=== PATIENT | female | born 1995 | race Caucasian/White ===

== ENCOUNTER 2018-01-16 14:20 | Outpatient (CLI) | END 2018-01-16 14:21 | disposition home or self-care (01) | LOC: LAB 14:20 | PROVIDERS: ATTEND Emergency Medicine | DX: J06.9 Acute upper respiratory infection, unspecified (principal) | CPT/HCPCS: 87651; 87804 ==

== ENCOUNTER 2018-03-03 19:05 | Emergency (ER) ==
[2018-03-03 19:12] VITALS: BP 113/78; TEMP 99.8; BMI 28.3
[2018-03-03] MEDS ORDERED: GI COCKTAIL PO STA (19:33)
[2018-03-03] MEDS ORDERED: ZOFRAN 4 MG/2 ML IM STA (19:33)
[2018-03-03] MEDS ORDERED: DEMEROL 25 MG/ML VIAL IM STA ×2 (19:33→22:22)
--- NOTE | 2018-03-03 20:13 | ED.PDOC ---
General ED Provider: Dr. NOHEMI JOHNSON Chief Complaint: Abdominal Pain Stated Complaint: Hurting in upper belly, dull type, no nausea or vomiting Time Seen by Physician: 19:05 Mode of Arrival: Walk-In Information Source: Patient, Family Primary Care Provider: NOHEMI JOHNSON[facility] Nursing and Triage Documentation Reviewed and Agree: Yes Reviewed sepsis parameters & appropriate labs ordered?: No System Inflammatory Response Syndrome: Not Applicable Sepsis Protocol: For patient's 13 years and over: Temp is 96.8 and below OR 101 and greater Pulse >90 BPM Resp >20/minute Acutely Altered Mental Status Are patient's symptoms suggestive of a new infection, such as: -Pneumonia -Skin, Soft Tissue -Endocarditis -UTI -Bone, Joint Infection -Implantable Device -Acute Abdominal Infection -Wound Infection -Meningitis -Blood Stream Catheter Infection -Unknown GI Complaint Exam - Abdominal Pain Complaint/Exam Onset: Gradual Symptoms Are: Still present Timing: Constant Initial Severity: Moderate Current Severity: Moderate Location of Pain: Epigastric Radiates To: Reports: Back Character: Reports: Aching, Throbbing Aggravating: Reports: Movement Alleviating: Reports: None Associated Signs and Symptoms: Denies: Diaphoresis, Fever, Cough, Chest pain, Dizziness, Back pain, Constipation, Blood in stool, Dysuria, Urinary frequency, Decreased urine output, Decreased appetite, Vaginal bleeding, Vaginal discharge , Nausea, Vomiting, Diarrhea, Sore throat, Decreased activity AAA Risk Factors: Reports: None Cardiac Risk Factors: Reports: None Ectopic Risk Factors: Reports: None Ovarian Torsion Risk Factors: Reports: None Surgical Obstruction Risk Factors: Reports: None Related Surgical History: Reports: None Patient Rh Status: Unknown Abdominal Findings: Absent: Pulsatile mass, Abdominal distention, Unequal femoral pulses Differential Diagnoses: GB, PUD Review of Systems - Review Of Systems Constitutional: Reports: No symptoms Eyes: Reports: No symptoms Ears, Nose, Mouth, Throat: Reports: No symptoms Respiratory: Reports: No symptoms Cardiac: Reports: No symptoms, Chest pain GI: Reports: Abdominal pain : Reports: No symptoms Musculoskeletal: Reports: No symptoms Skin: Reports: No symptoms Neurological: Reports: No symptoms Endocrine: Reports: No symptoms Hematologic/Lymphatic: Reports: No symptoms All Other Systems: Reviewed and Negative Past Medical History - Past Medical History Previously Healthy: Yes Endocrine: Reports: None Cardiovascular: Reports: None Respiratory: Reports: None Hematological: Reports: None Gastrointestinal: Reports: None Genitourinary: Reports: None Neuro/Psych: Reports: None Musculoskeletal: Reports: None Cancer: Reports: None Last Menstrual Period: 1 MONTH - Surgical History General Surgical History: Reports: None - Family History Family History: Reports: None - Social History Smoking Status: Never smoker Hx Substance Use: No Alcohol Screening: None - Immunizations Tetanus Shot up to Date: Yes Physical Exam - Physical Exam Appearance: Ill-appearing, Obese Eyes: TAZ, EOMI, Conjunctiva clear ENT: Ears normal, Nose normal, Oropharynx normal Respiratory: Airway patent, Breath sounds clear, Breath sounds equal, Respirations nonlabored Cardiovascular: RRR, Pulses normal, No rub, No murmur GI/: Soft, Tender (rt uq) Musculoskeletal: Normal strength, ROM intact, No edema, No calf tenderness Skin: Warm, Dry, Normal color Neurological: Sensation intact, Motor intact, Reflexes intact, Cranial nerves intact, Alert, Oriented Psychiatric: Affect appropriate, Mood appropriate Physician Notification - Case Discussed Time of Notification: 22:23 (Dr Hathaway) Critical Care Note - Critical Care Note Total Time (mins): 30 Course - Course Hematology/Chemistry: 03/03/18 19:43 03/03/18 19:43 Orders, Labs, Meds: Lab Review 03/03/18 03/03/18 03/03/18 19:43 19:43 19:43 WBC 16.94 H RBC 5.08 Hgb 14.9 Hct 44.0 MCV 86.6 MCH 29.3 MCHC 33.9 RDW Coeff of Jennifer 12.6 Plt Count 318 Immature Gran % (Auto) 0.4 Neut % (Auto) 85.4 Lymph % (Auto) 9.2 L Kings[place] % (Auto) 4.4 Eos % (Auto) 0.2 Baso % (Auto) 0.4 Immature Gran # (Auto) 0.1 Neut # (Auto) 14.5 H Lymph # (Auto) 1.6 [place] # (Auto) 0.8 Eos # (Auto) 0.0 Baso # (Auto) 0.1 Sodium 140 Potassium 4.1 Chloride 101 Carbon Dioxide 26 Anion Gap 17.1 BUN 12 Creatinine 0.79 Estimated GFR (MDRD) 91.00 BUN/Creatinine Ratio 15.18 Glucose 92 Calcium 10.2 Total Bilirubin 0.6 AST 34 ALT 55 Alkaline Phosphatase 84 Total Protein 8.2 Albumin 4.3 Globulin 3.9 Albumin/Globulin Ratio 1.10 Amylase 50 Lipase 18 Serum , Qual Negative Orders Category Date Time Status IV [ED IV/MEDIPORT/POWERPORT] .ONCE EMERGENCY 03/03/18 21:24 Active AMYLASE Stat LAB 03/03/18 19:43 Completed CBC W/ AUTO DIFF Stat LAB 03/03/18 19:43 Completed COMPREHENSIVE METABOLIC PANEL Stat LAB 03/03/18 19:43 Completed LIPASE Stat LAB 03/03/18 19:43 Completed SERUM Stat LAB 03/03/18 19:43 Completed 0.9 % Sodium Chloride [Saline Flush] MEDS 03/03/18 21:24 Ordered 1 syr IVF PRN PRN Mag-Al Plus//Lidocaine [Gi Cocktail] MEDS 03/03/18 19:33 Discontinued 30 ml PO ONCE STA Meperidine HCl/Pf [Demerol 25 mg/ml Vial] MEDS 03/03/18 19:33 Discontinued 25 mg IM ONCE STA Meperidine HCl/Pf [Demerol 25 mg/ml Vial] MEDS 03/03/18 22:22 Stat 25 mg IM ONCE STA Meperidine HCl/Pf [Demerol 50 mg/ml Vial] MEDS 03/03/18 22:07 Discontinued 50 mg .ROUTE .STK-MED ONE Ondansetron HCl/Pf [Zofran 4 mg/2 ml] MEDS 03/03/18 19:33 Discontinued 4 mg IM ONCE STA CT ABDOMEN/PELVIS WO CONTRAST Stat RADS 03/03/18 19:33 Completed Medications Generic Name Dose Route Start Last Admin Trade Name Freq PRN Reason Stop Dose Admin Sodium Chloride 1 syr 03/03/18 21:24 Saline Flush IVF PRN PRN To flush IV Discontinued Medications Generic Name Dose Route Start Last Admin Trade Name Freq PRN Reason Stop Dose Admin Al Hydroxide/Mg Hydroxide 30 ml 03/03/18 19:33 03/03/18 19:45 Gi Cocktail PO 03/03/18 19:34 30 ml ONCE STA Administration Meperidine HCl 25 mg 03/03/18 19:33 03/03/18 19:45 Demerol 25 Mg/Ml Vial IM 03/03/18 19:34 25 mg ONCE STA Administration Ondansetron HCl 4 mg 03/03/18 19:33 03/03/18 19:45 Zofran 4 Mg/2 Ml IM 03/03/18 19:34 4 mg ONCE STA Administration Vital Signs: Temp Pulse Resp BP Pulse Ox 03/03/18 19:06 99.8 F H 109 H 16 113/78 98 Departure - Departure Time of Disposition: 22:23 Disposition: HOME SELF-CARE Discharge Problem: Cholecystitis Instructions: Cholecystitis (ED) Condition: Stable Pt referred to PMD for follow-up: Yes IPMP verified?: No Allergies/Adverse Reactions: Allergies No Known Allergies Allergy (Unverified 03/03/18 19:12) Home Medications: Ambulatory Orders 1 [No Reported Medications] 03/03/18 Transfer Form Completed: Yes Disposition Discussed With: Patient
--- NOTE | 2018-03-03 20:32 | CT ---
EXAM: CT of the abdomen and pelvis without contrast. HISTORY: Right upper quadrant pain. PROCEDURE: Contiguous axial CT images of the abdomen and pelvis without contrast with coronal and sa gittal reformats. FINDINGS: There is diffuse fatty infiltration of the liver. The gallbladder is enlarged measuring 4.2 cm in diameter. The gallbladder wall is not well visualized by CT. The pancreas, spleen, adrenal glands and kidneys are normal in appearance. The abdominal aorta is normal in appearance. The visual ized loops of bowel and appendix are normal in appearance. No free fluid or free air in the abdomen o r pelvis. The bladder is adequately filled with no abnormality identified. The uterus is unremarkable . The bones and soft tissues are unremarkable. Impression: Enlarged gallbladder as described. Recommend ultrasound for further evaluation if clinic ally indicated. Diffuse fatty infiltration of the liver.
[2018-03-03] MEDS ORDERED: DEMEROL 50 MG/ML VIAL ONE (22:07)
[2018-03-03] MEDS ORDERED: ZOSYN 3.375 GM 3.375 GM in SODIUM CHLORIDE 50 ML IV STA (22:22)
== END 2018-03-03 23:05 | disposition home or self-care (01) ==
LOC: ED 19:05
DX: K81.9 Cholecystitis, unspecified (principal)
CPT/HCPCS: 36415; 80053; 82150; 83690; 84703; 85025; 96365; 96372; 96375; 99285

== ENCOUNTER 2018-03-03 23:08 | Outpatient (CLI) ==
[2018-03-03 19:12] VITALS: BMI 28.3
== END 2018-03-03 23:09 | disposition home or self-care (01) ==
LOC: AMBL 23:08
PROVIDERS: ATTEND Emergency Medicine
DX: K81.9 Cholecystitis, unspecified (principal); R10.9 Unspecified abdominal pain